=== PATIENT | female | born 1975 | race Caucasian/White ===

== ENCOUNTER 2017-08-18 12:52 | Emergency (ER) | payer OTHER ==
[~2017-08-18] VITALS: Ht 154.9 cm; Wt 88.9 kg
[~2017-08-18 12:52] MED LIST: BUDE1AER; GLU500; LEVA0.6318
--- NOTE | 2017-08-18 13:02 | NUR ---
AMBULATES TO OF2
[2017-08-18 13:03] VITALS: BP 164/81
[2017-08-18] MEDS ORDERED: methylPREDNISolone SS 125 MG in WATER STERILE 2 ML IM ONE (13:20)
[2017-08-18] MEDS ORDERED: ALBUTEROL SULFATE/IPRATROPIU 3 ML SOL IH ONE ×2 (13:20→13:40)
--- NOTE | 2017-08-18 13:27 | NUR ---
ASSUMED PATIENT CARE, CONCUR WITH TRIAGE ASSESSMENT. SEEN AND EVALUATED BY PROVIDER, MSE COMPLETED.
[2017-08-18] MEDS ORDERED: methylPREDNISolone SS 125 MG/2 ML VIAL ONE (13:34)
[2017-08-18 15:00] VITALS: BP 122/60
--- NOTE | 2017-08-18 15:03 | NUR ---
DISPO AND DECISION MAKING DC HOME WITH INSTRUCTIONS AND PRESCRIPTIONS, PATIENT VERBALIZING RELIEF FROM SYMPTOMS. NO DISTRESS.
== END 2017-08-18 15:03 | disposition home or self-care (01) ==
LOC: MED 12:52
DX: J45.901 Unspecified asthma with (acute) exacerbation (principal); E11.9 Type 2 diabetes mellitus without complications; Z79.899 Other long term (current) drug therapy; Z79.84 Long term (current) use of oral hypoglycemic drugs
CPT/HCPCS: 71045; 94640; 96372; 99284; J2930; J7620

== ENCOUNTER 2017-08-22 07:21 | Inpatient (IN) | payer OTHER ==
[~2017-08-22] VITALS: Ht 154.9 cm; Wt 92.5 kg
--- NOTE | 2017-08-22 07:31 | NUR ---
PATIENT PRESENTS TO ED WITH C/O COUGH AND CP WHEN COUGHING . PT STATES HE HAS SLIGHT SOB O2 SAT OF 97 % AT ROOM AIR;DENIES N/V/D; SKIN IS PINK/WARM/DRY; AAOX4 WITH EVEN AND STEADY GAIT; PATIENT STATES PAIN OF 5/10 AT THIS TIME;PATIENT POSITIONED FOR COMFORT;ER WILL BE NOTIFIED;
[2017-08-22 07:32] VITALS: BP 124/94
--- NOTE | 2017-08-22 07:32 | NUR ---
PT AMBULATES TO OF4
[2017-08-22] MEDS ORDERED: cefTRIAXone 1,000 MG in LIDOCAINE 1% ***ER ONLY *** 2.1 ML IM ONE (07:40)
[2017-08-22] MEDS ORDERED: DEXAMETHASONE 10 MG/ML VIAL IM ONE (07:40)
[2017-08-22] MEDS ORDERED: ALBUTEROL SULFATE/IPRATROPIU 3 ML SOL IH ONE (07:40)
[2017-08-22] MEDS ORDERED: ALBUTEROL 0.083% 2.5 MG/3 ML NEBU INH ONE ×2 (07:40)
--- NOTE | 2017-08-22 07:40 | NUR ---
Dr. Owens evaluating patient in OF.
[2017-08-22] MEDS ORDERED: cefTRIAXone 1,000 MG VIAL ONE (07:59)
--- NOTE | 2017-08-22 08:00 | NUR ---
RT AT BEDSIDE.
--- NOTE | 2017-08-22 08:02 | NUR ---
CALLED PHARMACY SPOKE TO ARABELLA LNUA;THEY WILL MIX THE ROCEPHIN AND SEND IT TO [facility] WE HAVE SHORTAGE OF 1% LIDOCAINE.
--- NOTE | 2017-08-22 08:07 | NUR ---
SPOKE TO [facility];NEED TO CHANGE THE TIME FOR THE ORDER OF TAMIFLU;CAN'T CAN'T GET THE MEDICINE IN THE [facility]; SAYS HE WILL CHANGE IT;
[2017-08-22] MEDS ORDERED: LIDOCAINE 2% 1000 MG/50 ML VIAL INJ ONE (08:10)
[2017-08-22] MEDS ORDERED: AZITHROMYCIN 500 MG in DEXTROSE 5% 250 ML IV ONE (08:45)
--- NOTE | 2017-08-22 08:48 | NUR ---
INFLUENZA A POSITIVE,INFLUENZA B NEGATIVE. ERMD MADE AWARE
[2017-08-22] MEDS ORDERED: FAMOTIDINE 20 MG/2 ML VIAL IVP ONE (08:55)
[2017-08-22] MEDS ORDERED: methylPREDNISolone SS 125 MG in WATER STERILE 2 ML IM ONE (08:55)
[2017-08-22] MEDS ORDERED: NACL 0.9% 1,000 ML IV ONE (08:55)
[2017-08-22] MEDS ORDERED: OSELTAMIVIR PHOSPHATE 75 MG CAP PO SCH (09:00)
--- NOTE | 2017-08-22 09:00 | NUR ---
PATIENT TAKEN TO BED#3 FROM OF
--- NOTE | 2017-08-22 09:26 | NUR ---
CALLED PHARMACY FOR THE TAMIFLU;PHARMACIST SAID "WE DON'T HAVE A TAMIFLU BUT WE ORDER SOME"IT WILL BE HERE 1 TO 2 HOURS"
[2017-08-22] MEDS ORDERED: AZITHROMYCIN 500 MG INJ VIAL IV ONE (09:32)
[2017-08-22 10:07] LABS: BILIRUBIN,URINE NEGATIVE (NEGATIVE); COLOR,URINE YELLOW (YELLOW); LEUKOCYTE ESTERASE ,URINE NEGATIVE (NEGATIVE); NITRITE, URINE NEGATIVE (NEGATIVE); PH,URINE 5.5 (5.0-9.0); UGLUCOSE 3+ (NEGATIVE)
[2017-08-22 10:14] LABS: HEMATOCRIT 35.3 % (36-48); HEMOGLOBIN 11.6 g/dL (12.0-16.0); MEAN CORPUSCULAR HEMOGLOBIN 29 pg (27-31); MEAN CORPUSCULAR HGB CONC 33 g/dL (33-37); MEAN CORPUSCULAR VOLUME 87 fL (80-94); PLATELET COUNT (AUTO) 295 K/uL (140-450); RED BLOOD CELL COUNT(AUTO) 4.03 MIL/uL (4.20-5.40); RED CELL DISTRIBUTION WIDTH 11.8 % (11.6-13.7); WHITE BLOOD COUNT (AUTO) 13.5 K/uL (4.8-10.8)
[2017-08-22 10:28] LABS: ANION GAP 15.9 (8-16); CARBON DIOXIDE 23.1 mmol/L (21-32); CREATININE 1.9 mg/dL (0.6-1.3); TOTAL BILIRUBIN 0.2 mg/dL (0.0-1.0)
[2017-08-22 10:32] LABS: APPEARANCE,URINE SLIGHTLY HAZY (CLEAR)
[2017-08-22 10:34] LABS: BLOOD, URINE 1+ (NEGATIVE)
[2017-08-22 10:35] LABS: RBC,URINE 0-5 (RARE) /HPF (0-5); YEAST,URINE Few /HPF (None Seen)
[2017-08-22 10:42] LABS: BASOPHILS % (MANUAL) 1 % (0-2); LYMPHOCYTES % (MANUAL) 18 % (20-46); MONOCYTES % (MANUAL) 8 % (5-12)
[2017-08-22] MEDS ORDERED: DEXTROSE 50% 50 ML SYR IVP PRN ×2 (12:50→13:00)
[2017-08-22] MEDS ORDERED: BLOOD GLUCOSE MONITORING 1 DEV DEV FS SCH (12:50)
[2017-08-22] MEDS ORDERED: INSULIN HUMAN REGULAR 100 UNITS in NACL 0.9% 100 ML IV SCH ×2 (12:50→13:00)
[2017-08-22] MEDS ORDERED: POTASSIUM CHL 20 MEQ/NACL 0.9% 1,000 ML IV ONE (12:50)
[2017-08-22] MEDS: BLOOD GLUCOSE MONITORING 1 DEV DEV FS SCH ×10 (14:00→23:08)
--- NOTE | 2017-08-22 14:00 | NUR ---
RECEIVED PATIENT FROM ED RN PER FLORIN. PATIENT IS AWAKE, ALERT ORIENTED X 4. ABLE TO MAKE HER NEEDS KNOWN. LEFT AC PERIPHERAL IV PATENT AND INTACT. SKIN WARM TO TOUCH WNL, TOENAILS WNL, WITH HAIR GROWTH, NO EDEMA AND +2 BILATERAL PEDAL PULSES. URINE AND BOWEL CONTINENT. CALL LIGHT WITHIN REACH. BED AT LOWEST POSSIBLE POSITION. WILL CONTINUE TO MONITOR PATIENT.
--- NOTE | 2017-08-22 14:04 | NUR ---
Pt report given to JACOBO IN ICU. Transfer of care at this time.
[2017-08-22 14:18] VITALS: BP 155/92
[2017-08-22 14:42] LABS: FREE T4 (FREE THYROXINE) 1.13 ng/dL (0.76-1.46); THYROID STIMULATING HORMONE 1.59 uIU/mL (0.34-3.74)
[2017-08-22] MEDS ORDERED: POTASSIUM CHLORIDE 40 MEQ, LIDOCAINE 1% 25 MG in NACL 0.9% 250 ML IV SCH (15:30)
[2017-08-22] MEDS ORDERED: INSULIN HUMAN REGULAR 100 UNITS/ML 10 ML VIAL SUBQ SCH (15:30)
--- NOTE | 2017-08-22 15:42 | NUR ---
2 RTS UNABLE TO OBTAIN ABG AT THIS TIME
[2017-08-22 16:07] VITALS: BP 157/78
--- NOTE | 2017-08-22 16:30 | NUR ---
RESIDENT PHYSICIAN DR SUAZO MADE AWARE OF BLOOD SUGAR 724.
[2017-08-22] MEDS ORDERED: NACL 0.9% 2,500 ML IV ONE (16:50)
[2017-08-22 16:54] LABS: MAGNESIUM 1.8 mg/dL (1.8-2.4)
[2017-08-22 17:00] LABS: POTASSIUM 4.6 mmol/L (3.5-5.1)
[2017-08-22 17:01] LABS: ANION GAP 19.4 (8-16); CARBON DIOXIDE 19.2 mmol/L (21-32)
--- NOTE | 2017-08-22 17:30 | NUR ---
LATEST BLOOD SUGAR 492. DR. DOOLEY MADE AWARE.
[2017-08-22 18:00] VITALS: BP 141/78
[2017-08-22] MEDS: INSULIN HUMAN REGULAR 100 UNITS in NACL 0.9% 100 ML IV SCH (18:41)
--- NOTE | 2017-08-22 19:15 | NUR ---
REPORT GIVEN TO [facility] RN FOR CONTINUITY OF CARE.
--- NOTE | 2017-08-22 19:15 | NUR ---
LATEST BS 398. DR. SUAZO MADE AWARE.
--- NOTE | 2017-08-22 19:25 | NUR ---
RECEIVED REPORT FROM CHRISTIANE CENTENO FOR CONTINUITY OF CARE. PT AWAKE, ALERT AND ORIENTED. ABLE TO MAKE NEEDS KNOWN. AFEBRILE. PERRLA. NO SOB NOTED. VS STABLE AT THIS TIME. DENIES CHEST PAIN. NO SIGNS OF DISTRESS NOTED. PULSES PALPABLE. S1+S2 HEARD. NOTED PT WITH WHEEZING. BOWEL SOUNDS ACTIVE. PT CONTINENT OF BOTH BLADDER AND BOWEL. PERIPHERAL IV LEFT AC, LEFT HAND, AND RIGHT FA. ALL PERIPHERAL IV PATENT AND ASYMPTOMATIC. PT ON INSULIN DRIP. BED AT LOW POSSIBLE POSITION. CALL LIGHT WITHIN REACH. WILL CONTINUE TO MONITOR PT.
[2017-08-22] MEDS ORDERED: ALBUTEROL 0.083% 2.5 MG/3 ML NEBU INH PRN (19:55)
[2017-08-22] MEDS ORDERED: IPRATROPIUM 0.02% 0.5 MG/2.5 ML NEBU INH PRN (19:55)
[2017-08-22 20:00] VITALS: BP 147/86
[2017-08-22] MEDS ORDERED: methylPREDNISolone SS 125 MG/2 ML VIAL IVP SCH (20:10)
[2017-08-22] MEDS: CHLORHEXADINE GLUC 2% CLOTH TP SCH (20:17)
[2017-08-22] MEDS ORDERED: MONTELUKAST SODIUM 10 MG TAB PO SCH ×2 (20:25→21:35)
[2017-08-22] MEDS ORDERED: FLUTICASONE NASAL 50 MCG/ACTUATION 16 GM BTL NS SCH ×2 (20:25→21:35)
[2017-08-22] MEDS ORDERED: ACETYLCYSTEINE 10% (100 MG/ML) 100 MG/ML VIAL INH PRN ×2 (20:30→21:55)
[2017-08-22] MEDS ORDERED: KETOROLAC 30 MG/ML VIAL IVP PRN (20:50)
[2017-08-22] MEDS ORDERED: HYDROcodone/APAP 5/325 MG 1 TAB TAB PO PRN (20:50)
[2017-08-22] MEDS ORDERED: metFORMIN 500 MG TAB PO SCH (21:00)
[2017-08-22] MEDS ORDERED: guaiFENesin 600 MG TABER PO SCH ×2 (21:00→21:35)
--- NOTE | 2017-08-22 21:40 | NUR ---
SCHEDULED MEDICATION ADMINISTERED. PT TOLERATED WELL. VS STABLE. NO CHANGE IN CONDITION. WILL CONTINUE TO MONITOR PT.
[2017-08-22 22:00] VITALS: BP 146/70
[2017-08-22 22:01] LABS: ANION GAP 17.2 (8-16); CARBON DIOXIDE 19.5 mmol/L (21-32); CREATININE 1.6 mg/dL (0.6-1.3); POTASSIUM 3.7 mmol/L (3.5-5.1)
[2017-08-22] MEDS ORDERED: POTASSIUM CHLORIDE 10 MEQ in NACL 0.9% 1,000 ML IV SCH (22:15)
[2017-08-22 22:19] LABS: MAGNESIUM 1.8 mg/dL (1.8-2.4); PHOSPHORUS 1.7 mg/dL (2.5-4.9)
--- NOTE | 2017-08-22 22:45 | NUR ---
INFORMED DR DOOLEY THAT FLONASE AND MUCINEX NOT GIVEN D/T MEDICATIONS ARE NOT AVAILABLE.
--- NOTE | 2017-08-22 23:10 | NUR ---
CALLED DR DOOLEY TO REPORT THAT PT LATEST BG IS 183. RECEIVED NEW ORDERS. WILL CONTINUE TO MONITOR PT.
[2017-08-22] MEDS ORDERED: DEXT 5% / NACL 0.45% 1,000 ML IV SCH (23:15)
[2017-08-22] MEDS: ALBUTEROL 0.083% 2.5 MG/3 ML NEBU INH SCH (23:32)
[2017-08-23] VITALS (9 sets, daily range): BP systolic 134–193; BP diastolic 66–89
[2017-08-23] MEDS: BLOOD GLUCOSE MONITORING 1 DEV DEV FS SCH ×11 (00:34→21:19)
[2017-08-23] MEDS ORDERED: NACL 0.9% 1,000 ML IV SCH (01:15)
--- NOTE | 2017-08-23 01:18 | NUR ---
LATEST BG 252. INFORMED DR DOOLEY AND RECEIVED NEW ORDERS. WILL CONTINUE TO MONITOR PT. VS STABLE AT THIS TIME. NO SIGNS OF DISTRESS NOTED.
[2017-08-23] MEDS: INSULIN HUMAN REGULAR 100 UNITS in NACL 0.9% 100 ML IV SCH (02:15)
[2017-08-23] MEDS: ALBUTEROL 0.083% 2.5 MG/3 ML NEBU INH SCH ×6 (02:37→23:08)
[2017-08-23 02:51] LABS: ANION GAP 13.6 (8-16); CARBON DIOXIDE 20.2 mmol/L (21-32); CREATININE 1.3 mg/dL (0.6-1.3); POTASSIUM 3.8 mmol/L (3.5-5.1)
[2017-08-23 02:57] LABS: MAGNESIUM 1.9 mg/dL (1.8-2.4); PHOSPHORUS 1.8 mg/dL (2.5-4.9)
--- NOTE | 2017-08-23 03:11 | NUR ---
CHECKED BG AND WAS 179. INFORMED DR DOOLEY, ACCORDING TO HIM FOLLOW PROTOCOL AND HAVE PT ON D5 1/2NS AND HAVE INSULIN DRIP AT 0.05UNITS/KG/HR.
--- NOTE | 2017-08-23 05:08 | NUR ---
DR DOOLEY CAME IN TO CHECK ON PT. INFORMED THAT BG 248. TITRATED D5 1/2NS TO 200ML/HR. DR DOOLEY AWARE AND OKAY TO TITRATE. WILL CONTINUE TO MONITOR PT.
[2017-08-23] MEDS: DEXT 5% / NACL 0.45% 1,000 ML IV SCH ×2 (05:19→14:03)
[2017-08-23 05:40] LABS: HEMATOCRIT 30.8 % (36-48); HEMOGLOBIN 10.1 g/dL (12.0-16.0); MEAN CORPUSCULAR HEMOGLOBIN 29 pg (27-31); MEAN CORPUSCULAR HGB CONC 33 g/dL (33-37); MEAN CORPUSCULAR VOLUME 88 fL (80-94); PLATELET COUNT (AUTO) 257 K/uL (140-450); RED BLOOD CELL COUNT(AUTO) 3.52 MIL/uL (4.20-5.40); RED CELL DISTRIBUTION WIDTH 12.4 % (11.6-13.7); WHITE BLOOD COUNT (AUTO) 12.5 K/uL (4.8-10.8)
[2017-08-23 05:59] LABS: ANION GAP 14.2 (8-16); CARBON DIOXIDE 20.3 mmol/L (21-32); CREATININE 1.2 mg/dL (0.6-1.3); POTASSIUM 3.5 mmol/L (3.5-5.1)
--- NOTE | 2017-08-23 06:00 | NUR ---
VBG OBTAINED BY LAB AT THIS TIME, VBG SAMPLE WAS NOT ABLE TO BE ANALYZED AFTER MULTIPLE ATTEMPTS THROUGH THE MACHINE, DR DOOLEY IS AWARE, NEXT VBG WILL BE REPORTED.
[2017-08-23 06:03] LABS: MAGNESIUM 1.9 mg/dL (1.8-2.4)
--- NOTE | 2017-08-23 06:13 | NUR ---
BG CHECKED AND WAS 252. INFORMED DR DOOLEY AND RECEIVED NEW ORDERS.
[2017-08-23 06:38] LABS: BASOPHILS % (MANUAL) 0 % (0-2); EOSINOPHILS % (MANUAL) 0 % (0-4); LYMPHOCYTES % (MANUAL) 15 % (20-46); MONOCYTES % (MANUAL) 1 % (5-12)
[2017-08-23] MEDS: BUDESONIDE 0.25 MG/2 ML NEBU INH SCH ×2 (06:40→19:21)
--- NOTE | 2017-08-23 07:05 | NUR ---
REPORT GIVEN TO CHRISTIANE CENTENO FOR CONTINUITY OF CARE. VS STABLE AT THIS TIME.
--- NOTE | 2017-08-23 07:05 | NUR ---
ASSUMED CONTINUITY OF CARE FROM NOC RN. PATIENT IS AWAKE, ALERT, ORIENTED X4. ABLE TO MAKE HER NEEDS KNOWN. LEFT AC G 20 TO INSULIN DRIP AT 9.25 U/H. RIGHT HAND G 20 RUNNING TO D5 1/2 NS AT 150 CC/H. URINE AND BOWEL CONTINENT, ABLE TO MAKE HER NEEDS KNOWN. CALL LIGHT WITH IN REACH. BED AT LOWEST POSSIBLE POSITION. WILL CONTINUE TO MONITOR PATIENT.
[2017-08-23] MEDS: FLUTICASONE NASAL 50 MCG/ACTUATION 16 GM BTL NS SCH (09:00)
[2017-08-23] MEDS: methylPREDNISolone SS 125 MG/2 ML VIAL IVP SCH ×3 (09:00→17:31)
[2017-08-23] MEDS: MONTELUKAST SODIUM 10 MG TAB PO SCH (09:03)
[2017-08-23] MEDS: LORATADINE 10 MG TAB PO SCH (09:03)
[2017-08-23] MEDS: LACTOBACILLUS RHAMNOSUS GG 1 EACH CAP PO SCH ×2 (09:03→17:31)
[2017-08-23] MEDS: guaiFENesin 600 MG TABER PO SCH ×2 (09:08→21:02)
[2017-08-23] MEDS: INSULIN DETEMIR 100 UNITS/ML 10 ML VIAL SUBQ SCH (10:59)
--- NOTE | 2017-08-23 11:05 | NUR ---
PT REFUSED TX TOLD DR. FISHER THAT SHE WANTS TO GO HOME NO SIGNS OF DISTRESS NOTED AT THIS TIME CHRISTIANE CENTENO NOTIFIED
[2017-08-23] MEDS ORDERED: LORazepam 0.5 MG TAB PO PRN (11:25)
[2017-08-23] MEDS ORDERED: PROBIOTIC SCREEN 1 EA MISC MC PRN (11:35)
[2017-08-23] MEDS ORDERED: BLOOD GLUCOSE MONITORING 1 DEV DEV FS SCH (12:00)
[2017-08-23] MEDS: AZITHROMYCIN 250 MG TAB PO SCH (12:07)
[2017-08-23] MEDS: MUPIROCIN 2% OINT 22 GM TUBE TP SCH (12:08)
[2017-08-23] MEDS ORDERED: DEXTROSE 50% 50 ML SYR IVP PRN (14:05)
[2017-08-23] MEDS: INSULIN LISPRO SLIDING SCALE 100 UNITS/ML VIAL SUBQ PRN ×2 (16:33→21:21)
--- NOTE | 2017-08-23 19:20 | NUR ---
REPORT GIVEN TO NIGHT RN FOR CONTINUITY OF CARE. PATIENT IN STABLE CONDITION.
--- NOTE | 2017-08-23 19:30 | NUR ---
RECEIVED PATIENT ON BED, AWAKE ALERT AND ORIENTED ABLE TO MOVE LIMBS FREELY. BREATHING EVEN AND UNLABORED; ON ROOM AIR. CARDIACSCOPE SHOWS ON SINUS RHYTHM, HR 89/MIN NO ARRHYTHMIAS SEEN. ABDOMEN IS SOFT; ACTIVE BOWEL SOUNDS.
[2017-08-23] MEDS: CHLORHEXADINE GLUC 2% CLOTH TP SCH (20:00)
[2017-08-23] MEDS ORDERED: INSULIN DETEMIR 100 UNITS/ML 10 ML VIAL SUBQ SCH (21:00)
--- NOTE | 2017-08-23 21:00 | NUR ---
ACCUCHECK 431; REFERRED TO DR. DOOLEY BY TELEPHONE; GOT NEW ORDER TO CHANGE IVF TO NORMAL SALINE; CARRIED OUT.
[2017-08-23] MEDS: NACL 0.9% 1,000 ML IV SCH (21:29)
[2017-08-23 22:52] LABS: ANION GAP 15.9 (8-16); CREATININE 1.5 mg/dL (0.6-1.3); POTASSIUM 3.9 mmol/L (3.5-5.1)
[2017-08-24] VITALS: BP 148/81
[2017-08-24] MEDS: methylPREDNISolone SS 125 MG/2 ML VIAL IVP SCH (00:12)
--- NOTE | 2017-08-24 00:30 | NUR ---
SLEEPING QUIETLY; V/S STABLE AND WITHIN NORMAL LIMITS,
[2017-08-24] MEDS: ALBUTEROL 0.083% 2.5 MG/3 ML NEBU INH SCH ×4 (03:00→14:58)
--- NOTE | 2017-08-24 03:00 | NUR ---
UP AND ABOUT TO TOILET FOR HER MORNING WASH. PATIENT COMPLAINED THAT SHE BEDWET A LOT EVERYTIME SHE COUGHS.
--- NOTE | 2017-08-24 03:31 | NUR ---
PATIENT WAS INFORMED AND AWARE THAT SHE'LL BE TRANSFERRED TO TELEMETRY DEPT. BEFORE THE END OF MY SHIFT.
[2017-08-24 04:00] VITALS: BP 140/78
--- NOTE | 2017-08-24 05:00 | NUR ---
V/S STABLE; NO OTHER UNUSUAL COMPLAINTS IN THE NIGHT.
--- NOTE | 2017-08-24 05:35 | NUR ---
TRANSFERRED TO TELE 114 PER BED; ENDORSED TO DOOR TECHNICIANCHRISTIANE ABARCA FOR CONTINUITY OF CARE.
--- NOTE | 2017-08-24 05:37 | NUR ---
RECEIVED PATIENT FROM ICU. PATIENT A&OX4. PATIENT DENIES PAIN. IV SITE PATENT AND INTACT. PATIENT IS AMBULATORY. PATIENT DENIES DIZZINESS, SOB, CHEST PAIN. NO SIGNS OR SYMPTOMS OF ACUTE DISTRESS NOTED. CALL LIGHT WITHIN REACH. PATIENT ORIENTED TO UNIT. SAFETY MEASURES ENSURED. WILL CONTINUE TO MONITOR.
[2017-08-24] MEDS: BLOOD GLUCOSE MONITORING 1 DEV DEV FS SCH ×2 (06:36→11:29)
--- NOTE | 2017-08-24 07:25 | NUR ---
ENDORSED PLAN OF CARE TO AM RN. PATIENT IN STABLE CONDITION.
--- NOTE | 2017-08-24 07:26 | NUR ---
RECEIVED REPORT FROM TAR KETTLE RUNNER RN. PATIENT IS AAOX4, RESPIRATORY EFFORT EVEN AND UNLABORED. PATIENT IS ON DROPLET PRECAUTION. NO SIGNS AND SYMPTOMS OF ACUTE DISTRESS NOTED AT THIS TIME. HAS IV TO LEFT AC 20G, INFUSING NORMAL SALINE AT 70 ML/HR. SITE IS CLEAN, DRY, PATENT AND INTACT. BED IS IN LOWEST POSITION, SIDE RAILS UP X2, CALL LIGHT PLACED WITHIN REACH. DISCUSSED PLAN OF CARE WITH PATIENT, SHE VERBALIZED UNDERSTANDING. WILL CONTINUE TO MONITOR.
[2017-08-24 08:00] VITALS: BP 134/76
[2017-08-24] MEDS ORDERED: metFORMIN 500 MG TAB PO SCH (08:00)
[2017-08-24] MEDS: BUDESONIDE 0.25 MG/2 ML NEBU INH SCH (08:09)
[2017-08-24 08:37] LABS: HEMATOCRIT 33.3 % (36-48); HEMOGLOBIN 11.2 g/dL (12.0-16.0); MEAN CORPUSCULAR HEMOGLOBIN 30 pg (27-31); MEAN CORPUSCULAR HGB CONC 34 g/dL (33-37); MEAN CORPUSCULAR VOLUME 88 fL (80-94); PLATELET COUNT (AUTO) 302 K/uL (140-450); RED BLOOD CELL COUNT(AUTO) 3.78 MIL/uL (4.20-5.40); RED CELL DISTRIBUTION WIDTH 12.7 % (11.6-13.7); WHITE BLOOD COUNT (AUTO) 17.1 K/uL (4.8-10.8)
[2017-08-24] MEDS: NACL 0.9% 1,000 ML IV SCH (08:46)
--- NOTE | 2017-08-24 08:49 | NUR ---
PATIENT HAS BEEN SCREENED AND CATEGORIZED HIGH NUTRITION RISK. PATIENT WILL BE SEEN IN 1-2 DAYS. 08/23/17-08/24/[address]
[2017-08-24] MEDS: guaiFENesin 600 MG TABER PO SCH (08:52)
[2017-08-24] MEDS: AZITHROMYCIN 250 MG TAB PO SCH (08:52)
[2017-08-24] MEDS: MONTELUKAST SODIUM 10 MG TAB PO SCH (08:52)
[2017-08-24] MEDS: LORATADINE 10 MG TAB PO SCH (08:52)
[2017-08-24] MEDS: LACTOBACILLUS RHAMNOSUS GG 1 EACH CAP PO SCH (08:52)
[2017-08-24] MEDS: FLUTICASONE NASAL 50 MCG/ACTUATION 16 GM BTL NS SCH (08:53)
[2017-08-24 08:54] LABS: ANION GAP 16.8 (8-16); CARBON DIOXIDE 19.9 mmol/L (21-32); CREATININE 1.5 mg/dL (0.6-1.3); POTASSIUM 3.7 mmol/L (3.5-5.1)
[2017-08-24] MEDS: MUPIROCIN 2% OINT 22 GM TUBE TP SCH (08:54)
[2017-08-24 08:57] LABS: MAGNESIUM 2.1 mg/dL (1.8-2.4)
[2017-08-24] MEDS ORDERED: methylPREDNISolone SS 40 MG/ML VIAL IVP SCH ×2 (09:00)
[2017-08-24] MEDS: INSULIN DETEMIR 100 UNITS/ML 10 ML VIAL SUBQ SCH (09:06)
[2017-08-24 09:31] LABS: MONOCYTES % (MANUAL) 4 % (5-12)
[2017-08-24 09:32] LABS: LYMPHOCYTES % (MANUAL) 15 % (20-46)
[2017-08-24] MEDS ORDERED: FLUCONAZOLE 100 MG TAB PO SCH (11:05)
[2017-08-24] MEDS: INSULIN LISPRO SLIDING SCALE 100 UNITS/ML VIAL SUBQ PRN (11:36)
--- NOTE | 2017-08-24 11:46 | NUR ---
BIN NOTE PER DRYLAND FARMER ROSA, SEND REVIEWS TO BOTH [facility] AND [facility] INITIAL REVIEW FAXED TO [facility] [phone] PH# [phone] AND TO [facility] [phone] PH# [phone] Addendum: 08/24/17 at 1442 by Liudmila Duarte RECEIVED CALL FROM [facility] BIN LOWE # [phone] REQUESTING TO SEND REVIEWS TO FAX# [phone]. FAXED INITIAL REVIEW TO [facility] [phone] ATTN: BIN LOWE.
[2017-08-24 12:00] VITALS: BP 149/82
--- NOTE | 2017-08-24 16:10 | NUR ---
PATIENT DECIDED TO LEAVE AMA. WAS IN THE ROOM WHEN DR NORBERT WINTERS HAD HER SIGN THE AMA FORM. DR WINTERS EXPLAINED TO THE PATIENT THE RISKS INVOLVED IN LEAVING AMA AND THE PATIENT VERBALIZED UNDERSTANDING. A PRESCRIPTION FOR NEW MEDICATIONS WAS GIVEN TO THE PATIENT AND INFORMED THAT SHE NEEDS TO SEE HER PCP TO GET REFILLS ON OTHER MEDICATION. IV FLUID WAS STOPPED. IV REMOVED FROM THE SITE. CATHETER INTACT. SITE IS CLEAN, DRY, PATENT. ID BANDS REMOVED. PATIENT IN STABLE CONDITION.
--- NOTE | 2017-08-24 16:13 | NUR ---
08/24/2017 RD INITIAL ASSESSMENT COMPLETED PLEASE REFER TO NUTRITION ASSESSMENT UNDER CARE ACTIVITY FOR ESTIMATED NUTRITIONAL NEEDS. 1.CONTINUE 60 GM CCHO DIET FOR GLUCOSE CONTROL 2.BLOOD GLUCOSE TO BE WNL (74-106 MG/DL) WITHIN 2-3 DAYS. 3.PT TO CONTINUE CONSUMING >75% ESTIMATED KCAL AND PRO NEEDS/DAY. PT CONSUMING APPROX 1430 KCALS AND 85 GM PRO/DAY, THIS IS MEETING GREATER THAN 100% OF ESTIMATED KCALS AND PRO NEEDS/DAYADEQUATE 4.RD TO FOLLOW-UP IN 2-3DAYS PATIENT IS HIGH RISK. KIKA ROMANO, HILDA
--- NOTE | 2017-08-24 16:25 | NUR ---
08/24/2017 RD INITIAL ASSESSMENT COMPLETED PLEASE REFER TO NUTRITION ASSESSMENT UNDER CARE ACTIVITY FOR ESTIMATED NUTRITIONAL NEEDS. 1.PT ENERGY INTKAE TO INCREASE TO >75% ESTIMATED NEEDS/DAY WITHIN 2-3 DAYS. 2.NUTRITION RELATED LABORATORY VALUES TO IMPROVE TO NORMAL LIMITS WITHIN 2-3 DAYS. 3.RD TO FOLLOW-UP IN 3-5 DAYS PATIENT IS MODERATE RISK. KIKA ROMANO, RD
[2017-08-25 06:27] LABS: T4 (THYROXINE) 7.4 ug/dL (4.5-12.0)
== END 2017-08-24 16:10 | disposition left against medical advice (07) | DRG 133 ==
LOC: MED 07:21 → MIC 13:16 → MTU 08-24 05:35
PROVIDERS: ADMIT Family Medicine; ATTEND Family Medicine
DX: J96.00 Acute respiratory failure, unspecified whether with hypoxia or hypercapnia (principal); N17.0 Acute kidney failure with tubular necrosis; E11.10 Type 2 diabetes mellitus with ketoacidosis without coma; E44.0 Moderate protein-calorie malnutrition; D68.59 Other primary thrombophilia; E11.65 Type 2 diabetes mellitus with hyperglycemia; J44.1 Chronic obstructive pulmonary disease with (acute) exacerbation; E87.1 Hypo-osmolality and hyponatremia; J45.901 Unspecified asthma with (acute) exacerbation; E66.01 Morbid (severe) obesity due to excess calories; J10.1 Influenza due to other identified influenza virus with other respiratory manifestations; I10 Essential (primary) hypertension; E87.6 Hypokalemia; Z68.36 Body mass index [BMI] 36.0-36.9, adult; Z53.21 Procedure and treatment not carried out due to patient leaving prior to being seen by health care provider; Z98.51 Tubal ligation status; Z71.3 Dietary counseling and surveillance
CPT/HCPCS: 36415; 36600; 71046; 80048; 80053; 81001; 82009; 82803; 82948; 83036; 83735; 84100; 84436; 84439; 84443; 84479; 84484; 85025; 87040; 87081; 87086; 87804; 93005; 93925; 93970; 94640; 96361; 96365; 96372; 96375; 99291; J0456; J0696; J1100; J1815; J2001; J2920; J2930; J3480; J3490; J7030; J7060; J7613; J7626; J7644; Q0092

== ENCOUNTER 2017-09-20 23:47 | Inpatient (IN) | payer OTHER ==
[~2017-09-20] VITALS: Ht 154.9 cm; Wt 83.0 kg
[~2017-09-20 23:47] MED LIST changes: -GLU500; +GLU500 PO
[2017-09-20 23:51] VITALS: BP 155/82
--- NOTE | 2017-09-21 00:03 | NUR ---
TO ER BED 10
--- NOTE | 2017-09-21 00:10 | NUR ---
Pt came to ED c/o productive cough x5 days. Pt states cough is progressively getting worse. Pt A&Ox4. Pt denies Dyspnia or pain at this time. VSS. Pt in bed in poc with HOB elevated. ER MD aware. continue to to monitor.
[2017-09-21] MEDS ORDERED: ALBUTEROL SULFATE/IPRATROPIU 3 ML SOL IH ONE ×2 (00:35→02:40)
[2017-09-21] MEDS ORDERED: NACL 0.9% 1,000 ML IV ONE (01:20)
[2017-09-21] MEDS ORDERED: MAG SULF 2000 MG/WATER PREMIX 50 ML IV ONE (01:20)
[2017-09-21] MEDS ORDERED: AZITHROMYCIN 250 MG TAB PO ONE (02:15)
[2017-09-21] MEDS ORDERED: IBUPROFEN 800 MG TAB PO ONE (02:15)
[2017-09-21] MEDS ORDERED: cefTRIAXone 250 MG in LIDOCAINE MPF 1% - **ER/OR** 0.9 ML IM ONE (02:15)
[2017-09-21] MEDS ORDERED: GLIP5TAB4 PO (02:34)
[2017-09-21] MEDS ORDERED: methylPREDNISolone SS 125 MG/2 ML VIAL IVP ONE (02:40)
[2017-09-21 02:45] LABS: BASOPHILS # (AUTO) 0.1 K/uL (0.00-0.22); EOSINOPHILS # (AUTO) 0.1 K/uL (0-0.4); EOSINOPHILS % (AUTO) 0.6 % (0.0-4.0); HEMOGLOBIN 10.2 g/dL (12.0-16.0); LYMPHOCYTES # (AUTO) 3.1 K/uL (2.5-16.5); LYMPHOCYTES % (AUTO) 22.2 % (20.5-51.1); MEAN CORPUSCULAR HEMOGLOBIN 29 pg (27-31); MEAN CORPUSCULAR HGB CONC 33 g/dL (33-37); MEAN CORPUSCULAR VOLUME 88 fL (80-94); MONOCYTES % (AUTO) 7.6 % (1.7-9.3); NEUTROPHILS # (AUTO) 9.5 K/uL (1.8-7.7); NEUTROPHILS % (AUTO) 68.6 % (42.2-75.2); PLATELET COUNT (AUTO) 335 K/uL (140-450); RED BLOOD CELL COUNT(AUTO) 3.54 MIL/uL (4.20-5.40); RED CELL DISTRIBUTION WIDTH 13.1 % (11.6-13.7); WHITE BLOOD COUNT (AUTO) 13.8 K/uL (4.8-10.8)
[2017-09-21 02:55] LABS: ANION GAP 13.8 (8-16); CARBON DIOXIDE 24.8 mmol/L (21-32); CREATININE 1.6 mg/dL (0.6-1.3); POTASSIUM 3.6 mmol/L (3.5-5.1)
[2017-09-21 03:01] LABS: ALBUMIN 2.4 g/dL (3.4-5.0); TOTAL BILIRUBIN 0.2 mg/dL (0.0-1.0)
[2017-09-21] MEDS ORDERED: ONDANSETRON 4 MG/2 ML VIAL IVP PRN (03:10)
[2017-09-21] MEDS ORDERED: ALBUTEROL SULFATE/IPRATROPIU 3 ML SOL IH PRN ×2 (03:10→13:15)
[2017-09-21] MEDS ORDERED: ACETAMINOPHEN 325 MG TAB PO PRN (03:10)
[2017-09-21] MEDS ORDERED: HYDROcodone/APAP 7.5/325 MG 1 TAB PO PRN (03:10)
[2017-09-21 04:00] VITALS: BP 121/84
--- NOTE | 2017-09-21 04:00 | NUR ---
PT ARRIVED AT UNIT VIA GURNEY, PT AMBULATED TO BED, NO DISTRESS NOTED, STABLE, REPORT RECEIVED FROM ER NURSE MIREYA RN, PT ON ROOM AIR NO SOB, REPORTED HAVING PAIN ON THE CHEST AREA OF 1/10 TOLERABLE. IV TO R AC 20 G RUNNING NS BOLUS, PT STATED IV HURTS, WILL PUT NEW IV. INITIAL ASSESSMENT DONE, ALL SAFETY PRECAUTION MET, WILL CONTINUE TO MONITOR.
--- NOTE | 2017-09-21 04:03 | NUR ---
Report given to Valery GRANDE and care transfered.
--- NOTE | 2017-09-21 04:11 | NUR ---
Pt escorted to room 106 B via gurney.
[2017-09-21 04:17] LABS: CHOL/HDL RATIO 5.5 (1-4.5); FREE T4 (FREE THYROXINE) 1.24 ng/dL (0.76-1.46); MAGNESIUM 2.5 mg/dL (1.8-2.4); PHOSPHORUS 2.6 mg/dL (2.5-4.9); THYROID STIMULATING HORMONE 1.05 uIU/mL (0.34-3.74)
[2017-09-21] MEDS ORDERED: DEXTROSE 50% 50 ML SYR IVP PRN (04:30)
[2017-09-21] MEDS: NACL 0.9% 1,000 ML IV SCH ×2 (04:40→22:04)
--- NOTE | 2017-09-21 04:40 | NUR ---
NEW IV INSERTED 22 G L FA, INTACT, PATENT, RAC 20G IV D/C, CATH INTACT, PT TOLERATED WELL, CALL LIGHT WITHIN REACH, WILL CONTINUE TO MONITOR.
[2017-09-21] MEDS: methylPREDNISolone SS 125 MG/2 ML VIAL IVP SCH ×3 (05:38→21:55)
--- NOTE | 2017-09-21 05:38 | NUR ---
DUE MEDICATION GIVEN, PT TOLERATED WELL, NO DISTRESS NOTED, CALL LIGHT WITHIN REACH, WILL CONTINUE TO MONITOR.
[2017-09-21] MEDS: BLOOD GLUCOSE MONITORING 1 DEV DEV FS SCH ×4 (06:14→21:55)
[2017-09-21] MEDS: INSULIN LISPRO SLIDING SCALE 100 UNITS/ML VIAL SUBQ PRN ×2 (06:15→16:48)
[2017-09-21] MEDS ORDERED: ALBUTEROL SULFATE/IPRATROPIU 3 ML SOL IH SCH ×2 (07:00→12:00)
--- NOTE | 2017-09-21 07:30 | NUR ---
ENDORSED PLAN OF CARE TO DAY SHIFT NURSE SHARMAINE RN, PT STABLE, NO DISTRESS NOTED, CALL LIGHT WITHIN REACH.
--- NOTE | 2017-09-21 07:30 | NUR ---
RECEIVED REPORT FROM STAFF NURSE NURSE. PATIENT IS AAOX4, RESPIRATORY EFFORT EVEN AND UNLABORED. PATIENT HAS PRODUCTIVE COUGH. NO SIGNS AND SYMPTOMS OF ACUTE DISTRESS NOTED AT THIS TIME. PATIENT HAS IV TO THE LEFT FOREARM 22G, INFUSING NORMAL SALINE AT 50ML/HR. SITE IS CLEAN, DRY, PATENT AND INTACT. DISCUSSED PLAN OF CARE WITH PATIENT AND SHE VERBALIZED UNDERSTANDING. BED IN LOWEST POSITION, SIDE RAILS UP X2, CALL LIGHT PLACED WITHIN REACH. WILL CONTINUE TO MONITOR.
[2017-09-21 08:00] VITALS: BP 153/82
[2017-09-21] MEDS ORDERED: LEVOFLOXACIN 750 MG/D5W PREMIX 150 ML IV SCH (08:00)
[2017-09-21] MEDS: AZITHROMYCIN 250 MG TAB PO SCH (08:23)
[2017-09-21] MEDS: LACTOBACILLUS RHAMNOSUS GG 1 EACH CAP PO SCH (08:23)
[2017-09-21] MEDS: DOCUSATE SODIUM 100 MG GELCAP PO SCH ×2 (08:24→21:55)
--- NOTE | 2017-09-21 08:45 | NUR ---
pt is unable to do IS at this time
--- NOTE | 2017-09-21 09:00 | NUR ---
PATIENT HAS BEEN SCREENED AND CATEGORIZED HIGH NUTRITION RISK. PATIENT WILL BE SEEN WITHIN 1-2 DAYS OF ADMISSION. 09/22/18-09/22/[address]
--- NOTE | 2017-09-21 11:41 | NUR ---
PATIENTS BLOOD SUGAR AT 493. MADE DR ALMONTE AND GABRIELE AWARE. WILL FOLLOW THROUGH WITH ORDERS.
[2017-09-21 12:00] VITALS: BP 155/94
[2017-09-21] MEDS ORDERED: ACETYLCYSTEINE 10% (100 MG/ML) 100 MG/ML VIAL INH SCH (12:00)
[2017-09-21] MEDS ORDERED: INSULIN LANTUS 100 UNITS/ML 10 ML VIAL SUBQ SCH (13:00)
--- NOTE | 2017-09-21 13:21 | NUR ---
FAXED INITIAL REVIEW TO [facility] [phone] PHONE [facility] [phone] FAXED INITIAL REVIEW TO [facility] [phone] PHONE [phone]
[2017-09-21 16:00] VITALS: BP 155/91
--- NOTE | 2017-09-21 16:42 | NUR ---
MADE DR ALMONTE AWARE THAT PATIENTS BLOOD SUGAR IS TOO HIGH TO READ ON THE GLUCOMETER. ORDERED TO GIVE 15 UNITS OF HUMALOG AND RECHECK BLOOD SUGAR IN 2 HOURS. WILL FOLLOW THROUGH WITH ORDERS.
[2017-09-21] MEDS ORDERED: metFORMIN 500 MG TAB PO SCH (18:35)
--- NOTE | 2017-09-21 18:35 | NUR ---
MADE DR PATEL AWARE THAT PATIENTS BLOOD SUGAR IS NOW 559. HE ADDED ON A COUPLE OF MEDICATIONS TO BE GIVEN AT 2100. NO COVERAGE ORDERED FOR RIGHT NOW. PATIENT HAS NO SIGNS AND SYMPTOMS OF ACUTE DISTRESS NOTED AT THIS TIME. WILL CONTINUE TO MONITOR.
[2017-09-21] MEDS ORDERED: glipiZIDE 5 MG TAB PO SCH (18:43)
[2017-09-21] MEDS: ALBUTEROL SULFATE/IPRATROPIU 3 ML SOL IH SCH (18:50)
--- NOTE | 2017-09-21 18:50 | NUR ---
PATIENT UNABLE TO PERFORM I/S DUE TO COUGHING SPELLS
[2017-09-21] MEDS: INSULIN LISPRO 100 UNITS/ML VIAL SUBQ SCH ×2 (18:55→21:53)
--- NOTE | 2017-09-21 19:19 | NUR ---
ENDORSED PATIENT TO TECHNICAL INSTRUCTOR COURSE DEVELOPER RN FOR CONTINUITY OF CARE. PATIENT IN STABLE CONDITION.
--- NOTE | 2017-09-21 19:20 | NUR ---
RECEIVED REPORT FROM DAY SHIFT NURSE. AAOX4. NO C/O PAIN OR SOB NOTED. IV TO LEFT FA #22G, NS AT 50 ML/HR. NO DIARRHEA NOTED. DISCUSSED PLAN OF CARE, PT VERBALIZED UNDERSTANDING. CALL LIGHT WITHIN REACH. WILL CONTINUE TO MONITOR.
--- NOTE | 2017-09-21 20:05 | NUR ---
SCD'S NOT APPLIED. PT AMBULATING BY HERSELF.
[2017-09-21] MEDS ORDERED: INSULIN LISPRO 100 UNITS/ML VIAL SUBQ ONE (20:50)
--- NOTE | 2017-09-21 21:00 | NUR ---
BS CHECKED 552. DR. PATEL ORDERED TO GIVE 15 UNITS OF HUMALOG SQ.
--- NOTE | 2017-09-21 21:30 | NUR ---
PT ACCIDENTALLY PULLED OUT IV LINE. TIP INTACT. NO BLEEDING NOTED. INSERTED NEW IV TO LEFT HAND #22G. GOOD FLUSH AND BLOOD RETURN. PT TOLERATED PROCEDURE WELL. PT COUGHING BUT REFUSED COUGH MEDICINE. CALL LIGHT WITHIN REACH.
--- NOTE | 2017-09-21 22:15 | NUR ---
PEAK FLOW METER LEFT AT BEDSIDE, PATIENT STILL HAVING CONTINUOUS COUGH, PATIENT UNABLE TO DO INCENTIVE SPIROMETER. RECOMMENDED TO CHRISTIANE PRIETO THAT PATIENT MAY NEED COUGH MEDICATION,
--- NOTE | 2017-09-21 22:20 | NUR ---
PT COUGHING. OFFERED COUGH MEDS. PT STATED OKAY BUT SHE WANTED A COUGH PILL NOT COUGH SYRUP. DR. PATEL MADE AWARE. WAITING FOR MD'S ORDER.
[2017-09-21] MEDS ORDERED: BENZOCAINE/MENTHOL 1 LOZ MM PRN (23:05)
[2017-09-22] VITALS: BP 136/80
[2017-09-22] MEDS ORDERED: guaiFENesin 600 MG TABER PO SCH ×2 (00:20→09:00)
--- NOTE | 2017-09-22 00:40 | NUR ---
PT SLEEPING BUT EASILY AROUSABLE. NO DISTRESS NOTED. NO COUGHING AT THIS TIME. CALL LIGHT WITHIN REACH.
--- NOTE | 2017-09-22 03:30 | NUR ---
PT SLEEPING, WAKES EASILY. NO S/S OF DISTRESS NOTED.
--- NOTE | 2017-09-22 04:10 | NUR ---
RECEIVED CRITICAL LAB VALUE BLOOD CULTURE- GRAM POSITIVE COCCI. RESULT REPORTED TO DR. PATEL. NO NEW ORDER AT THIS TIME.
[2017-09-22] MEDS: methylPREDNISolone SS 125 MG/2 ML VIAL IVP SCH ×2 (05:28→12:52)
[2017-09-22] MEDS: INSULIN LISPRO SLIDING SCALE 100 UNITS/ML VIAL SUBQ PRN ×2 (06:22→14:11)
[2017-09-22] MEDS: BLOOD GLUCOSE MONITORING 1 DEV DEV FS SCH ×3 (06:24→13:35)
--- NOTE | 2017-09-22 06:30 | NUR ---
BS CHECKED 386. 10 UNITS OF HUMALOG SQ GIVEN ORDERED.
--- NOTE | 2017-09-22 07:05 | NUR ---
ENDORSED PT TO DAY SHIFT NURSE. PT IN STABLE CONDITION.
--- NOTE | 2017-09-22 07:10 | NUR ---
RECEIVED REPORT FROM PRINTING TECHNICIAN NURSE, PT IS SLEEPING IN BED AT THIS TIME BUT EASILY AWAKEN, PT IS AAOX4, AMBULATORY, IV IS ON THE LEFT AC, PATENT, INTACT, FLUSHING WELL, NO S/S OF RESPIRATORY DISTRESS OR DISCOMFORT NOTED, DISCUSSED PLAN OF CARE WITH PT, PT VERBALIZED UNDERSTANDING, SAFETY/FALL PRECAUTIONS ARE IN PLACE, CALL LIGHT IS WITHIN REACH, WILL CONTINUE TO MONITOR.
[2017-09-22 07:11] LABS: BASOPHILS # (AUTO) 0.1 K/uL (0.00-0.22); BASOPHILS % (AUTO) 0.8 % (0.0-2.0); EOSINOPHILS % (AUTO) 0.1 % (0.0-4.0); HEMATOCRIT 30.2 % (36-48); HEMOGLOBIN 10.2 g/dL (12.0-16.0); LYMPHOCYTES # (AUTO) 1.8 K/uL (2.5-16.5); LYMPHOCYTES % (AUTO) 12.6 % (20.5-51.1); MEAN CORPUSCULAR HEMOGLOBIN 30 pg (27-31); MEAN CORPUSCULAR HGB CONC 34 g/dL (33-37); MEAN CORPUSCULAR VOLUME 88 fL (80-94); MONOCYTES # (AUTO) 0.3 K/uL (0.8-1.0); MONOCYTES % (AUTO) 2.4 % (1.7-9.3); NEUTROPHILS # (AUTO) 12.2 K/uL (1.8-7.7); NEUTROPHILS % (AUTO) 84.1 % (42.2-75.2); PLATELET COUNT (AUTO) 344 K/uL (140-450); RED BLOOD CELL COUNT(AUTO) 3.43 MIL/uL (4.20-5.40); RED CELL DISTRIBUTION WIDTH 13.2 % (11.6-13.7); WHITE BLOOD COUNT (AUTO) 14.4 K/uL (4.8-10.8)
[2017-09-22 07:25] LABS: MAGNESIUM 2.5 mg/dL (1.8-2.4); PHOSPHORUS 3.1 mg/dL (2.5-4.9)
[2017-09-22 07:28] LABS: ANION GAP 18.4 (8-16); CARBON DIOXIDE 20.7 mmol/L (21-32); CREATININE 1.4 mg/dL (0.6-1.3); POTASSIUM 4.1 mmol/L (3.5-5.1)
[2017-09-22] MEDS ORDERED: glipiZIDE 5 MG TAB PO SCH (07:30)
[2017-09-22] MEDS: ALBUTEROL SULFATE/IPRATROPIU 3 ML SOL IH SCH ×2 (07:53→13:57)
[2017-09-22 08:00] VITALS: BP 138/77
[2017-09-22] MEDS ORDERED: metFORMIN 500 MG TAB PO SCH (08:00)
--- NOTE | 2017-09-22 08:02 | NUR ---
PTS PRE PEAK FLOW 100 POST PEAK FLOW 150 UNABLE TO DO IS COUGHING
[2017-09-22] MEDS ORDERED: INSULIN LANTUS 100 UNITS/ML 10 ML VIAL SUBQ SCH ×2 (09:00→11:00)
[2017-09-22] MEDS ORDERED: CLINICAL MONITORING MC SCH (09:00)
[2017-09-22] MEDS: DOCUSATE SODIUM 100 MG GELCAP PO SCH (09:19)
[2017-09-22] MEDS: LACTOBACILLUS RHAMNOSUS GG 1 EACH CAP PO SCH (09:19)
[2017-09-22] MEDS: AZITHROMYCIN 250 MG TAB PO SCH (09:20)
--- NOTE | 2017-09-22 09:37 | NUR ---
PT BLOOD GLUCOSE LEVEL IS 441 @0918. SPOKE WITH DR. SUAZO, HE ORDERED AN ADDITIONAL 5UNITS OF LANTUS. INSTRUCTED ME TO CHECK HER BLOOD GLUCOSE LEVELS IN 2 HOURS AND SEE IF SHE STILL NEEDS TO BE COVERED WITH REGULAR INSULIN. ALSO IS GOING TO CHANGE SOLU-MEDROL TO BID. HE ALSO SAID TO PLEASE TELL THE PT AND PT FAMILY TO "STOP SNEAKING IN FOOD PLEASE."
--- NOTE | 2017-09-22 09:43 | NUR ---
PATIENT HAS BEEN SCREENED AND CATEGORIZED HIGH NUTRITION RISK. PATIENT WILL BE SEEN WITHIN 1-2 DAYS OF ADMISSION. 09/21/17- 09/22/[address]
--- NOTE | 2017-09-22 09:46 | NUR ---
ASKED PT IF SHE COULD DO BREATHING EXERCISES WITH THE INCENTIVE SPIROMETER. PT NOT TOLERATED WELL, BEGAN TO COUGH IN BETWEEN BREATHS.
--- NOTE | 2017-09-22 11:30 | NUR ---
GLUCOSE CHECK AT 1124 REVEALED A BLOOD SUGAR OF 478. THE ADDITIONAL 5 UNITS OF LANTUS WAS ADMINISTERED REQUESTED BY DR. SUAZO. PT RESTING IN BED AWAITING LUNCH. BED IN LOWEST POSITION. CALL LIGHT WITHIN REACH. WILL CONTINUE TO MONITOR.
--- NOTE | 2017-09-22 12:26 | NUR ---
CM NOTE FAXED CONCURRENT REVIEW TO [facility] [phone] PHONE MARIPOSA [phone] AND TO [facility] [phone] PHONE [phone]
--- NOTE | 2017-09-22 14:02 | NUR ---
BLOOD GLUCOSE CHECK REVEALED A BLOOD SUGAR LEVEL OF 498 @[address]. DR[address] SUAZO ORDERED TO USE HUMALOG VIA SLIDING SCALE TO DECREASE BLOOD GLUCOSE LEVELS BEFORE PT LEAVES [place].
--- NOTE | 2017-09-22 14:08 | NUR ---
PRE PEAK FLOW 140 POST FLOW 110 PT REFUSES IS
--- NOTE | 2017-09-22 14:15 | NUR ---
PER DR. SUAZO GAVE 16 UNITS OF HUMALOG. PT STABLE AT THIS TIME. PT STILL DECIDED TO LEAVE A.
[2017-09-22] MEDS ORDERED: AZIT250T3 PO (14:24)
[2017-09-22] MEDS ORDERED: METH4TAB3 PO (14:24)
[2017-09-22] MEDS ORDERED: LACT10CA PO (14:24)
[2017-09-22] MEDS ORDERED: GUAI-791 PO (14:24)
[2017-09-22] MEDS ORDERED: methylPREDNISolone SS 40 MG/ML VIAL IVP SCH (21:00)
[2017-09-23] MEDS ORDERED: methylPREDNISolone SS 40 MG/ML VIAL IVP SCH (05:00)
[2017-09-23] MEDS ORDERED: LEVOFLOXACIN 750 MG/D5W PREMIX 150 ML IV SCH (09:00)
[2017-09-23] MEDS ORDERED: INSULIN LANTUS 100 UNITS/ML 10 ML VIAL SUBQ SCH (09:00)
--- NOTE | 2017-09-23 15:33 | NUR ---
CM NOTE FAXED DISCHARGE SUMMARY TO [facility] [phone] AND INFORMED ALISHA LOWE THAT PATIENT WENT AMA ON 09/22/17.
== END 2017-09-22 14:15 | disposition left against medical advice (07) | DRG 139 ==
LOC: MED 23:47 → MTU 09-21 03:08
PROVIDERS: ADMIT Family Medicine; ATTEND Family Medicine
DX: J18.9 Pneumonia, unspecified organism (principal); N17.0 Acute kidney failure with tubular necrosis; E43 Unspecified severe protein-calorie malnutrition; E11.10 Type 2 diabetes mellitus with ketoacidosis without coma; J44.0 Chronic obstructive pulmonary disease with (acute) lower respiratory infection; J45.901 Unspecified asthma with (acute) exacerbation; E11.65 Type 2 diabetes mellitus with hyperglycemia; R06.03 Acute respiratory distress; I10 Essential (primary) hypertension; D64.9 Anemia, unspecified; J20.9 Acute bronchitis, unspecified; Z98.51 Tubal ligation status; Z83.3 Family history of diabetes mellitus; Z82.49 Family history of ischemic heart disease and other diseases of the circulatory system; Z68.34 Body mass index [BMI] 34.0-34.9, adult; Z53.21 Procedure and treatment not carried out due to patient leaving prior to being seen by health care provider
CPT/HCPCS: 36415; 71045; 80048; 80053; 82150; 82948; 83036; 83690; 83735; 83880; 84100; 84439; 84443; 84484; 85025; 85610; 85730; 87040; 87081; 94640; 96361; 96374; 99285; J1644; J1815; J1956; J2930; J3475; J7030; J7620

== ENCOUNTER 2018-01-22 13:53 | Inpatient (IN) | payer OTHER ==
[~2018-01-22] VITALS: Ht 154.9 cm; Wt 83.5 kg
[~2018-01-22 13:53] MED LIST changes: +AZIT250T3 PO; +GLIP5TAB4 PO; +GUAI-791 PO; +LACT10CA PO; +METH4TAB3 PO
--- NOTE | 2018-01-22 13:55 | NUR ---
PT AMBULATES TO BED 11
[2018-01-22 14:02] VITALS: BP 193/79
--- NOTE | 2018-01-22 14:05 | NUR ---
42YO F TO ER WITH C/O SOB. PT STATES COLD X5DAYS AND SOB X2DAYS. PT HAS BEEN TO THE CLINIC X2 IN THAT PAST WEEK. PT STATES N/V, CP WITH COUGHING, COUGHING UP YELLOW PHLEGM, RHINORRHIA, AND FEVER. PT DENIES AND ABD PAIN AT THIS TIME. DIMINISHED LS WITH COURSE CRACKLES. PT STATE THAT SHE RAN OUT OF MED X2MO AGO. ER MD MADE AWARE. WILL CONTINUE TO MONITOR. HX: HTN, DM
[2018-01-22] MEDS ORDERED: NACL 0.9% 2,000 ML IV SCH (14:11)
[2018-01-22] MEDS ORDERED: ALBUTEROL 0.083% 2.5 MG/3 ML NEBU INH ONE ×2 (14:15→15:20)
[2018-01-22] MEDS ORDERED: IPRATROPIUM 0.02% 0.5 MG/2.5 ML NEBU INH ONE (14:15)
[2018-01-22] MEDS ORDERED: methylPREDNISolone SS 125 MG/2 ML VIAL IVP ONE (14:15)
[2018-01-22] MEDS ORDERED: METOCLOPRAMIDE 10 MG/2 ML INJ VIAL IVP ONE (14:20)
--- NOTE | 2018-01-22 14:22 | NUR ---
ADMMITTING DX: SOB LOC AWAKE AND ALERT SKIN TONE PINK TACHYPNEIC PATIENT WITH EPISODE OF EMESIS EDUCATION PROVIDE TO PATIENT WITH ACKNOWLWEDGEMENT ON THE ADVERSE REACTIONS OF NAUSEA AND VOMITTING TO ALBUTEROL SULFATE PATIENT STATES "I WANT THE BREATHING TREATMENT" EDUCATION ALSO PROVIDED WITH ACKNOWLEDGEMENT ON HHN THERAPY AND RESPIRATORY DRUGS HHN THERAPY GIVEN AT THIS TIME TOLERATED HH THERAPY WEL WITHOUT INCIDENTS POST HHN THERAPY PLACED PATIENT ON SUPPLEMENTAL OXYGEN AT 3 LPM VIA JIMI TOSCANO/CHRISTIANE NOTIFIED
[2018-01-22 14:51] LABS: BASOPHILS # (AUTO) 0.1 K/uL (0.00-0.22); BASOPHILS % (AUTO) 0.5 % (0.0-2.0); EOSINOPHILS # (AUTO) 0.1 K/uL (0-0.4); EOSINOPHILS % (AUTO) 0.8 % (0.0-4.0); HEMATOCRIT 35.3 % (36-48); HEMOGLOBIN 11.7 g/dL (12.0-16.0); LYMPHOCYTES # (AUTO) 1.3 K/uL (2.5-16.5); LYMPHOCYTES % (AUTO) 11.9 % (20.5-51.1); MEAN CORPUSCULAR HEMOGLOBIN 28 pg (27-31); MEAN CORPUSCULAR HGB CONC 33 g/dL (33-37); MEAN CORPUSCULAR VOLUME 85.1 fL (80-94); MONOCYTES # (AUTO) 0.9 K/uL (0.8-1.0); MONOCYTES % (AUTO) 7.8 % (1.7-9.3); NEUTROPHILS # (AUTO) 8.9 K/uL (1.8-7.7); PLATELET COUNT (AUTO) 270 K/uL (140-450); RED BLOOD CELL COUNT(AUTO) 4.15 MIL/uL (4.20-5.40); RED CELL DISTRIBUTION WIDTH 13.4 % (11.6-13.7); WHITE BLOOD COUNT (AUTO) 11.3 K/uL (4.8-10.8)
[2018-01-22] MEDS ORDERED: ACETAMINOPHEN 325 MG TAB PO ONE (15:00)
--- NOTE | 2018-01-22 15:05 | NUR ---
XRAY AT BEDSIDE
[2018-01-22 15:17] LABS: ALBUMIN 2.7 g/dL (3.4-5.0); ANION GAP 14.9 (8-16); CARBON DIOXIDE 23.3 mmol/L (21-32); CREATININE 1.6 mg/dL (0.6-1.3); POTASSIUM 3.2 mmol/L (3.5-5.1); TOTAL BILIRUBIN 0.3 mg/dL (0.0-1.0)
[2018-01-22] MEDS ORDERED: LEVOFLOXACIN 500 MG/D5W PREMIX 100 ML IV ONE (15:20)
--- NOTE | 2018-01-22 15:24 | NUR ---
RT AT BEDSIDE
[2018-01-22 15:41] LABS: APPEARANCE,URINE CLEAR (CLEAR); BILIRUBIN,URINE NEGATIVE (NEGATIVE); BLOOD, URINE 3+ (NEGATIVE); COLOR,URINE YELLOW (YELLOW); LEUKOCYTE ESTERASE ,URINE NEGATIVE (NEGATIVE); NITRITE, URINE NEGATIVE (NEGATIVE); PH,URINE 5.5 (5.0-9.0); UGLUCOSE 3+ (NEGATIVE)
--- NOTE | 2018-01-22 15:50 | NUR ---
RT AT BEDSIDE
--- NOTE | 2018-01-22 15:51 | NUR ---
ORDERED FOLLOW UP HHN THERAPY GIVEN STRONG MOIST NPC TOLERATED THERAPY WELL WITHOUT INCIDENT POST HHN THERAPY PLACED BACK ON SUPPLEMENTALOXYGEN AT 3 LPM VIA NC
[2018-01-22 15:57] LABS: RBC,URINE 11-20 (MOD) /HPF (0-5); WBC,URINE 0-5 (RARE) /HPF (0-5)
[2018-01-22] MEDS ORDERED: IBUPROFEN 400 MG TAB PO ONE (16:15)
[2018-01-22] MEDS ORDERED: POTASSIUM CHLORIDE 10 MEQ TABER PO ONE (16:15)
[2018-01-22] MEDS ORDERED: KCL 20 MEQ/WATER INJ PREMIX 100 ML IV ONE (16:15)
[2018-01-22] MEDS ORDERED: HYDROcodone/APAP 7.5/325 MG 1 TAB PO PRN (16:45)
[2018-01-22] MEDS: NACL 0.9% 1,000 ML IV SCH ×2 (16:45→20:57)
[2018-01-22] MEDS ORDERED: ACETAMINOPHEN 325 MG TAB PO PRN (16:45)
[2018-01-22] MEDS ORDERED: DOCUSATE SODIUM 100 MG GELCAP PO PRN (16:45)
[2018-01-22] MEDS ORDERED: ONDANSETRON 4 MG/2 ML VIAL IM/IVP PRN (16:45)
[2018-01-22] MEDS ORDERED: ALBUTEROL SULFATE/IPRATROPIU 3 ML SOL IH PRN (17:05)
[2018-01-22 17:25] VITALS: BP 126/59
--- NOTE | 2018-01-22 17:25 | NUR ---
Patient will be admitted to care of DR FIELDS . Admited to TELE. Will go to room 121 A . Belongings list completed. Report to HELENA GRANDE .
[2018-01-22] MEDS ORDERED: DEXTROSE 50% 50 ML SYR IVP PRN (17:30)
--- NOTE | 2018-01-22 17:30 | NUR ---
PT ADMITTED TO [facility]. BEDSIDE REPORT GIVEN BY ER NURSE CARINA. PT IS AAOX4. AMBULATED TO BED WITH STEADY GAIT. PT ABLE TO STATE PAST MEDICAL HX. DENIES PAIN. PT WITH NON PRODUCTIVE COUGH. ON O2 NC 4L. O2 SAT 99%. NO SOB. NO SIGNS OF DISTRESS. WILL CONTINUE TO MONITOR.
[2018-01-22 17:49] LABS: CHOL/HDL RATIO 7.4 (1-4.5); MAGNESIUM 1.4 mg/dL (1.8-2.4); PHOSPHORUS 2.1 mg/dL (2.5-4.9); THYROID STIMULATING HORMONE 0.88 uIU/mL (0.34-3.74)
[2018-01-22] MEDS: metFORMIN 850 MG TAB PO SCH (18:34)
--- NOTE | 2018-01-22 19:30 | NUR ---
ENDORSED PT TO UTILITY SALES AND SERVICE MANAGER NURSE ESTEPHANIA AT BEDSIDE FOR CONTINUITY OF CARE.PT IN STABLE CONDITION.
--- NOTE | 2018-01-22 19:31 | NUR ---
RECEIVED PATIENT ON THE LYING IN BED . PATIENT WAS COOPERATIVE AND DISCUSS THE PLAN OF CARE AND VERBALIZED UNDERSTANDING. CALL LIGHT WITHIN REACH.ALL NEEDS ATTENDED. WILL CONTINUE TO MONITOR.
[2018-01-22] MEDS: ALBUTEROL SULFATE/IPRATROPIU 3 ML SOL IH SCH (19:35)
[2018-01-22 20:00] VITALS: BP 136/73
--- NOTE | 2018-01-22 20:15 | NUR ---
NOTIFIED DR. DOOLEY ABOUT BS OF OVER 600 AND ORDER TO GIVE 12 UNITS OF INSULIN AND IVF OF NS TO 130CC/HR.
[2018-01-22] MEDS: INSULIN LISPRO SLIDING SCALE 100 UNITS/ML VIAL SUBQ PRN (20:36)
[2018-01-22] MEDS: glipiZIDE 5 MG TAB PO SCH (20:56)
[2018-01-22] MEDS ORDERED: AZITHROMYCIN 250 MG TAB PO SCH (21:00)
[2018-01-22] MEDS: BLOOD GLUCOSE MONITORING 1 DEV DEV FS SCH (21:00)
--- NOTE | 2018-01-22 23:03 | NUR ---
SEEN PATINE ASLEEP ON BED BUT EASILY AROUSABLE. BED IN LOW POSITION. CALL LIGHT WITHIN REACH. WILL CONTINUE TO MONITOR.
[2018-01-23] VITALS: BP 148/67
--- NOTE | 2018-01-23 01:25 | NUR ---
SEEN PATIENT ASLEEP ON BED. CALL LIGHT WITHIN REACH. NO S/S OF DISTRESS NOTED. WILL CONTINUE TO MONITOR.
[2018-01-23] MEDS ORDERED: MAG SULF 2000 MG/WATER PREMIX 50 ML IV SCH (02:30)
--- NOTE | 2018-01-23 03:45 | NUR ---
SEEN PATIENT ASLEEP ON BED. CALL LIGHT WITHIN REACH. BED IN LOW POSITION. NO S/S OF DISTRESS NOTED. WILL CONTINUE TO MONITOR.
[2018-01-23 04:00] VITALS: BP 148/83
--- NOTE | 2018-01-23 05:45 | NUR ---
NOTIFIED DR. DOOLEY ABOUT ELEVATED BS 503. 12 UNITS GIVEN PER MD INSTRUCTION..
[2018-01-23] MEDS: INSULIN LISPRO SLIDING SCALE 100 UNITS/ML VIAL SUBQ PRN (05:58)
[2018-01-23] MEDS: BLOOD GLUCOSE MONITORING 1 DEV DEV FS SCH (06:02)
--- NOTE | 2018-01-23 06:49 | NUR ---
PATIENT HAS BEEN SCREENED AND CATEGORIZED HIGH NUTRITION RISK. PATIENT WILL BE SEEN WITHIN 1-2 DAYS OF ADMISSION. 01/23/18 - 01/24/18 SELIN MONTES MBA, RD
[2018-01-23] MEDS: ALBUTEROL SULFATE/IPRATROPIU 3 ML SOL IH SCH (07:10)
--- NOTE | 2018-01-23 07:25 | NUR ---
ENDORSEMENT GIVEN TO AM SHIFT FOR CONTINUITY IF CARE.CALL LIGHTS WITHIN REACH. PATIENT IN STABLE CONDITION.
--- NOTE | 2018-01-23 07:30 | NUR ---
PATIENT IS AWAKE, ALERT. RESPIRATION EVEN, UNLABOR ON ROOM AIR. SKIN DRY AND WARM. LUNGS SOUND CLEAR THROUGHOUT. BOWEL SOUND ACTIVE 4 QUADRANTS, LBM 01/22/18. IV PATENT AND INTACT. DENIED PAIN, BLUR VISION, SOB AT THIS TIME. PLAN OF CARE WAS DISCUSSED WITH PATIENT. BED AT LOW POSITION, SIDE RAILS UP. CALL LIGHT WITHIN REAC
[2018-01-23] MEDS: NACL 0.9% 1,000 ML IV SCH (07:31)
[2018-01-23 08:00] VITALS: BP 154/82
[2018-01-23 08:16] LABS: T4 (THYROXINE) 7.4 ug/dL (4.5-12.0)
[2018-01-23 08:23] LABS: BASOPHILS % (AUTO) 0.1 % (0.0-2.0); HEMATOCRIT 31.7 % (36-48); HEMOGLOBIN 10.6 g/dL (12.0-16.0); LYMPHOCYTES # (AUTO) 1.6 K/uL (2.5-16.5); LYMPHOCYTES % (AUTO) 9.6 % (20.5-51.1); MEAN CORPUSCULAR HEMOGLOBIN 29 pg (27-31); MEAN CORPUSCULAR HGB CONC 34 g/dL (33-37); MEAN CORPUSCULAR VOLUME 85.7 fL (80-94); MONOCYTES # (AUTO) 0.9 K/uL (0.8-1.0); MONOCYTES % (AUTO) 5.4 % (1.7-9.3); NEUTROPHILS # (AUTO) 13.9 K/uL (1.8-7.7); NEUTROPHILS % (AUTO) 84.9 % (42.2-75.2); PLATELET COUNT (AUTO) 276 K/uL (140-450); RED CELL DISTRIBUTION WIDTH 13.8 % (11.6-13.7); WHITE BLOOD COUNT (AUTO) 16.3 K/uL (4.8-10.8)
[2018-01-23 08:49] LABS: ANION GAP 14.1 (8-16); CARBON DIOXIDE 23.8 mmol/L (21-32); CREATININE 1.4 mg/dL (0.6-1.3); MAGNESIUM 2.8 mg/dL (1.8-2.4); PHOSPHORUS 2.2 mg/dL (2.5-4.9); POTASSIUM 3.9 mmol/L (3.5-5.1)
[2018-01-23] MEDS ORDERED: LACTOBACILLUS RHAMNOSUS GG 1 EACH CAP PO SCH (09:00)
[2018-01-23] MEDS ORDERED: INSULIN LANTUS 100 UNITS/ML 10 ML VIAL SUBQ SCH (09:00)
[2018-01-23] MEDS: metFORMIN 850 MG TAB PO SCH (09:02)
[2018-01-23] MEDS: glipiZIDE 5 MG TAB PO SCH (09:02)
--- NOTE | 2018-01-23 10:26 | NUR ---
PATIENT VERBALIZED THE REQUEST TO LEAVE AMA. WAS AWARE
--- NOTE | 2018-01-23 10:58 | NUR ---
01/23/18 RD INITIAL ASSESSMENT COMPLETED PLEASE REFER TO NUTRITION ASSESSMENT UNDER CARE ACTIVITY FOR ESTIMATED NUTRITIONAL NEEDS. RD RECOMMENDATIONS: 1- RECOMMEND CONTINUE 60G CCHO DIET 2- PT NEEDS DIABETIC DIET EDUCATION; RD WILL EDUCATE ON F/U 3- F/U 2-3 DAYS; HIGH RISK SELIN MONTES MBA, RD
--- NOTE | 2018-01-23 11:10 | NUR ---
PATIENT SIGNED AMA FORM AT BEDSIDE, VERBALIZED UNDERSTANDING THE RISK OF LEAVING AMA. PRESCRIPTIONS WERE GIVEN AND EXPLAINED TO THE PATIENT. IVS WERE REMOVED, CATHETER INTACT, BLEEDING WAS CONTROLLED. ID BAND AND COMPUTATIONAL CHEMIST WERE REMOVED.
[2018-01-23] MEDS ORDERED: INSU100S22 SUBQ (11:16)
[2018-01-23] MEDS ORDERED: AZIT250T3 PO (11:16)
[2018-01-23] MEDS ORDERED: BLOO1EAC40 MC (11:16)
[2018-01-23] MEDS ORDERED: PEN-124 MC (11:16)
[2018-01-23] MEDS ORDERED: LACT1.4C PO (11:16)
[2018-01-23] MEDS ORDERED: METF850T PO (11:16)
[2018-01-23] MEDS ORDERED: LANC-947 MC (11:16)
[2018-01-23] MEDS ORDERED: GABA300C PO (11:16)
[2018-01-23] MEDS ORDERED: GLIP10TA3 PO (11:16)
[2018-01-23] MEDS ORDERED: AZITHROMYCIN 250 MG TAB PO SCH (21:00)
[2018-01-24] MEDS ORDERED: INSULIN LANTUS 100 UNITS/ML 10 ML VIAL SUBQ SCH (09:00)
--- NOTE | 2018-01-26 07:58 | NUR ---
[facility] FAXED ER REPORT, H&P, PROGRESS NOTES AND DISCHARGE SUMMARY TO [facility] [phone] PHONE [phone]
== END 2018-01-23 11:41 | disposition left against medical advice (07) | DRG 720 ==
LOC: MED 13:53 → MTU 16:49
PROVIDERS: ADMIT General Practice; ATTEND General Practice
DX: A41.9 Sepsis, unspecified organism (principal); J96.01 Acute respiratory failure with hypoxia; N17.0 Acute kidney failure with tubular necrosis; E43 Unspecified severe protein-calorie malnutrition; J18.9 Pneumonia, unspecified organism; J45.901 Unspecified asthma with (acute) exacerbation; E87.1 Hypo-osmolality and hyponatremia; E11.65 Type 2 diabetes mellitus with hyperglycemia; E86.0 Dehydration; R65.20 Severe sepsis without septic shock; I10 Essential (primary) hypertension; D64.9 Anemia, unspecified; E87.6 Hypokalemia; E83.39 Other disorders of phosphorus metabolism; E83.42 Hypomagnesemia; E78.5 Hyperlipidemia, unspecified; Z53.21 Procedure and treatment not carried out due to patient leaving prior to being seen by health care provider; Z98.51 Tubal ligation status; Z79.4 Long term (current) use of insulin; Z79.899 Other long term (current) drug therapy; Z82.49 Family history of ischemic heart disease and other diseases of the circulatory system; Z83.3 Family history of diabetes mellitus; Z68.34 Body mass index [BMI] 34.0-34.9, adult
CPT/HCPCS: 36415; 36600; 71045; 80048; 80053; 81001; 82150; 82803; 82948; 83036; 83605; 83690; 83735; 83880; 84100; 84436; 84443; 84479; 84484; 85025; 85610; 85730; 87040; 87081; 87086; 93005; 93970; 94640; 96361; 96365; 96367; 96375; 99291; J0696; J1815; J1956; J2765; J2930; J3475; J3480; J7030; J7060; J7613; J7620; J7644; Q0092

== ENCOUNTER 2022-06-16 09:15 | Emergency (ER) | payer OTHER ==
[~2022-06-16] VITALS: Ht 154.9 cm; Wt 84.8 kg
[~2022-06-16 09:15] MED LIST changes: +BLOO1EAC40 MC; +GABA300C PO; +GLIP10TA3 PO; +GLIP5TAB14 PO; -GLIP5TAB4 PO; +INSU100S22 SUBQ; +LACT1.4C PO; +LANC-947 MC; +METF-713 PO; +PEN-124 MC
[2022-06-16 09:45] VITALS: BP 168/67
[2022-06-16] MEDS ORDERED: KETOROLAC 60 MG/2 ML VIAL IM ONE (10:00)
--- NOTE | 2022-06-16 10:02 | NUR ---
C/O RIGHT LEG PAIN X2DAYS, DENIES TRAUMA/INJURY, TOOK TYLENOL FOR PAIN WITH SOME RELIEF, NOTED REDNESS AND RASH ON THE AFFECTED EXTREMITY. NKA PMH: DIALYSIS (MWF LAST TODAY) LEFT ARM, HTN, DM, ASTHMA
[2022-06-16] MEDS ORDERED: NAPR-54 PO (11:25)
[2022-06-16] MEDS ORDERED: CEPH-588 PO (11:25)
--- NOTE | 2022-06-16 11:34 | NUR ---
Patient discharged with v/s stable. Written and verbal after care instructions ABOUT CELLULITIS given and explained. Patient alert, oriented and verbalized understanding of instructions. Ambulatory with steady gait. All questions addressed prior to discharge. ID band removed. Patient advised to follow up with PMD. Rx of KEFLEX, NAPROXEN given. Patient educated on indication of medication including possible reaction and side effects. Opportunity to ask questions provided and answered.
== END 2022-06-16 11:34 | disposition home or self-care (01) ==
LOC: MED 09:15
DX: L03.115 Cellulitis of right lower limb (principal); J45.909 Unspecified asthma, uncomplicated; E11.9 Type 2 diabetes mellitus without complications; I10 Essential (primary) hypertension; Z79.899 Other long term (current) drug therapy; Z79.4 Long term (current) use of insulin; Z89.512 Acquired absence of left leg below knee
CPT/HCPCS: 96372; 99283; J1885

== ENCOUNTER 2023-02-03 12:19 | Inpatient (IN) | payer OTHER ==
[~2023-02-03] VITALS: Ht 167.6 cm; Wt 90.3 kg
[~2023-02-03 12:19] MED LIST changes: +CEPH-588 PO; -LEVA0.6318; +LEVA0.6335; +NAPR-54 PO
[2023-02-03 12:29] VITALS: BP 150/116
--- NOTE | 2023-02-03 12:37 | NUR ---
PATIENT W/C ASSIST TO BED 4
--- NOTE | 2023-02-03 12:38 | NUR ---
MD MCDERMOTT AND RT AT BEDSIDE
[2023-02-03] MEDS ORDERED: IPRATROPIUM 0.02% 0.5 MG/2.5 ML NEBU INH ONE ×2 (12:40→12:45)
[2023-02-03] MEDS ORDERED: ALBUTEROL 0.083% 2.5 MG/3 ML NEBU INH ONE ×2 (12:40→12:45)
--- NOTE | 2023-02-03 12:44 | NUR ---
bib pt own wc to ed bed 4, c/o sob w/asthma dialysis history. she states gets dialysis [facility] and did not get dialysis yesterday. she does have a left upper extremity av fistula in place. md eh velez pt and did a 05/20 albuterol/atrovent hx. pt does feel warm to touch but triage shows no elevated temp. pending full md assessment. interventions breathing tx, pulse ox and ekg monitoring, also mag to stop lung spasms.
[2023-02-03] MEDS ORDERED: methylPREDNISolone SS 125 MG/2 ML VIAL IVP ONE (12:45)
[2023-02-03] MEDS ORDERED: MAG SULF 2000 MG/WATER PREMIX 50 ML IV ONE (12:45)
--- NOTE | 2023-02-03 12:59 | NUR ---
RECEIVED A CALLED FROM ER PT IN NEED OF BREATHING TX STAT. PT RR32 SPO2 96% ON NRM. PT IS SOB AND STATED THIS HAS BEEN GOING ON SINCE 4AM. RT DID A RESPIRATORY ASSESSMENT . PT IS TOLERATING BREATHING TX WELL. PRODUCTIVE COUGH WITH YELLOW THICK SPUTUM. WILL CONTINUE TO MONITOR.
[2023-02-03 13:20] LABS: BASOPHILS # (AUTO) 0.1 K/uL (0.00-0.22); BASOPHILS % (AUTO) 0.8 % (0.0-2.0); EOSINOPHILS # (AUTO) 0.3 K/uL (0-0.4); EOSINOPHILS % (AUTO) 2.4 % (0.0-4.0); HEMATOCRIT 35.2 % (36-48); HEMOGLOBIN 11.1 g/dL (12.0-16.0); LYMPHOCYTES # (AUTO) 1.1 K/uL (2.5-16.5); LYMPHOCYTES % (AUTO) 9.2 % (20.5-51.1); MEAN CORPUSCULAR HEMOGLOBIN 29 pg (27-31); MEAN CORPUSCULAR HGB CONC 32 g/dL (33-37); MEAN CORPUSCULAR VOLUME 92.8 fL (80-94); MONOCYTES # (AUTO) 0.6 K/uL (0.8-1.0); MONOCYTES % (AUTO) 5.1 % (1.7-9.3); NEUTROPHILS # (AUTO) 10.1 K/uL (1.8-7.7); NEUTROPHILS % (AUTO) 82.5 % (42.2-75.2); PLATELET COUNT (AUTO) 258 K/uL (140-450); RED BLOOD CELL COUNT(AUTO) 3.79 MIL/uL (4.20-5.40); RED CELL DISTRIBUTION WIDTH 16.8 % (11.6-13.7); WHITE BLOOD COUNT (AUTO) 12.2 K/uL (4.8-10.8)
[2023-02-03 13:29] LABS: PROTHROMBIN TIME 10.7 secs (10.8-13.4)
[2023-02-03 13:37] LABS: ALBUMIN 3.3 g/dL (3.4-5.0); ANION GAP 17.6 (8-16); ASPARTATE AMINOTRANSFERASE 14 U/L (15-37); CARBON DIOXIDE 25.9 mmol/L (21-32); CHLORIDE 93 mmol/L (98-107); GFR ARICAN-AMERICAN 8 mL/min (>90); POTASSIUM 5.5 mmol/L (3.5-5.1); SODIUM SERUM 131 mmol/L (136-145); TOTAL BILIRUBIN 0.6 mg/dL (0.0-1.0); UREA NITROGEN, BLOOD 55 mg/dL (7-18)
[2023-02-03 13:39] LABS: GLUCOSE 429 mg/dL (74-106)
[2023-02-03 13:40] LABS: CREATININE 6.9 mg/dL (0.6-1.3)
[2023-02-03] MEDS ORDERED: SODIUM ZIRCONIUM CYCLOSILICATE 10 GM POWD.PACK PO ONE (13:55)
[2023-02-03] MEDS ORDERED: SODIUM BICARBONATE 8.4% PFS 50 MEQ/50 ML SYR IVP ONE (13:55)
[2023-02-03] MEDS ORDERED: INSULIN REGULAR, HUMAN 100 UNIT/ML VIAL SUBQ ONE (13:55)
[2023-02-03] MEDS ORDERED: ALBUTEROL SULFATE/IPRATROPIU 3 ML SOL IH PRN (15:05)
[2023-02-03] MEDS ORDERED: DEXTROSE 50% 50 ML SYR IVP PRN (15:10)
[2023-02-03] MEDS ORDERED: INSULIN LANTUS 100 UNITS/ML 10 ML VIAL SUBQ SCH (15:16)
[2023-02-03] MEDS ORDERED: ONDANSETRON 4 MG/2 ML VIAL IVP PRN (15:20)
[2023-02-03] MEDS ORDERED: HYDROcodone/APAP 5/325 MG 1 TAB TAB PO PRN ×2 (15:20)
[2023-02-03] MEDS: BLOOD GLUCOSE MONITORING 1 DEV DEV FS SCH ×2 (16:52→21:03)
[2023-02-03] MEDS: INSULIN LISPRO 100 UNITS/ML VIAL SUBQ SCH ×2 (16:54→22:46)
--- NOTE | 2023-02-03 17:02 | NUR ---
MD TRIVEDI NOTIFIED AND MADE AWARE OF BS 468. VERBAL ORDER RECEIVED "GIVE PT 10UNITS OF HUMALOG LISPRO ONCE". ORDER REPEATED BACK AND CARRIED OUT
[2023-02-03] MEDS: INSULIN LISPRO SLIDING SCALE 100 UNITS/ML VIAL SUBQ PRN ×2 (17:20→21:24)
--- NOTE | 2023-02-03 17:48 | NUR ---
pt provided w/ dinner. pt awake, repositioned and eating in bed
--- NOTE | 2023-02-03 19:19 | NUR ---
REPORT GIVEN TO [facility]. TRANSFER OF CARE AT THIS TIME
[2023-02-03] MEDS: ALBUTEROL SULFATE/IPRATROPIU 3 ML SOL IH SCH ×2 (19:27→23:00)
[2023-02-03] MEDS: BUDESONIDE 0.25 MG/2 ML NEBU INH SCH (19:28)
--- NOTE | 2023-02-03 19:32 | NUR ---
PATIENT RESTING IN BED, A/OX4, CHEST RISE AND FALL SYMMETRICAL, NO C/O PAIN OR S/S OF DISTRESS, ON MONITOR.
--- NOTE | 2023-02-03 19:45 | NUR ---
PT. IS FOR ADMISSION TO TELEMETRY. STILL WAITING FOR AVAILABLE BED.
--- NOTE | 2023-02-03 20:25 | NUR ---
PT. BP IS 183/74. referred to Dr. Khalil. received telephone order. amlodipine 10mg p.o now. hydralazine 10mg prn for bp above 160/90.
[2023-02-03] MEDS ORDERED: amLODIPine 5 MG TAB PO STA (20:37)
[2023-02-03] MEDS ORDERED: hydrALAZINE 20 MG/ML VIAL IVP PRN (20:40)
--- NOTE | 2023-02-03 21:00 | NUR ---
per acu check result blood sugar: Hi, above 600. dr. Khalil called and verbally informed of blood glucose result . dr. Khalil verbalized understanding and ordered 10 unit of humolag SQ. read back complete
--- NOTE | 2023-02-03 21:25 | NUR ---
Patient will be admitted to care of Dr. Blake, Dr. Khalil covering. Admited to Telemetry. Will go to room 113. Belongings list completed. Report to Tele Nurse Yves RN. Tele Nurse Yves RN verbally informed of administration of blood pressure medication Amlodipine 10mg PO and Insulin Humalog 10 Units, per verbal orders. Tele Nurse Yves RN. verbalized understanding of medication administration and Tele Nurse Yves RN stated she "will recheck blood pressure and blood sugar within 30 minutes and call back with recheck results." Tele Nurse Yves RN also verbalized understanding of report, no further questions.
--- NOTE | 2023-02-03 22:36 | NUR ---
NOTIFIED MD ABOUT RECHECK OF BLOOD SUGAR OF 582. PER MD STATES TO GIVE 20 UNITS OF LANTUS X1 AND 15 UNITS HUMALOG X1
--- NOTE | 2023-02-03 22:40 | NUR ---
POULTRY GRADER AT BEDSIDE STARTING DIALYSIS
[2023-02-03] MEDS: INSULIN LANTUS 100 UNITS/ML 10 ML VIAL SUBQ SCH (22:47)
--- NOTE | 2023-02-03 23:21 | NUR ---
PT RESTING, IS ON DIALYSIS, AND REFUSED SCHEDULED HHN TX. EDUCATED PT OF BENEFITS AND CONS OF MED TO WHICH SHE DECLINED. PT IS ON 2L NC, SPO2 98%, NO RESPIRATORY DISTRESS NOTED.
--- NOTE | 2023-02-04 00:15 | NUR ---
RECHECKED BLOOD GLUCOSE AFTER 1 HOUR AFTER 15 UNITS HUMALOG AND 20 UNITS LANTUS, ACCUCHECK SHOWING 315
[2023-02-04 00:27] VITALS: BP 142/68
[2023-02-04] MEDS: INSULIN LISPRO 100 UNITS/ML VIAL SUBQ SCH ×2 (01:38→06:21)
[2023-02-04] MEDS: INSULIN LANTUS 100 UNITS/ML 10 ML VIAL SUBQ SCH (01:39)
--- NOTE | 2023-02-04 01:39 | NUR ---
PT. FINISHED WITH DIALYSIS PER WELL DIGGER 4L OUT
[2023-02-04] MEDS: ALBUTEROL SULFATE/IPRATROPIU 3 ML SOL IH SCH ×3 (03:45→11:12)
--- NOTE | 2023-02-04 03:56 | NUR ---
PT CONTINUES TO REMOVE HER NASAL CANNULA AND STATES BECAUSE SHE "HAS BEEN DOING FINE WITHOUT IT". PT SPO2 WAS 90% ON RA. EDUCATED PT ON SPO2, THE BENEFITS OF WEARING HER NASAL CANNULA, AND MAINTAINING A VALUE OF >92%. PT DECIDED TO PLACE HER NASAL CANNULA BACK ON. RECEIVED SCHEDULED HHN TX, WAS PLACED ON 2L, SPO2 IS NOW 96%.
[2023-02-04 04:13] VITALS: BP 136/62
[2023-02-04] MEDS ORDERED: predniSONE 20 MG TAB PO SCH (06:00)
[2023-02-04] MEDS: BLOOD GLUCOSE MONITORING 1 DEV DEV FS SCH ×2 (06:06→11:49)
[2023-02-04] MEDS: INSULIN LISPRO SLIDING SCALE 100 UNITS/ML VIAL SUBQ PRN ×2 (06:22→11:53)
[2023-02-04 06:47] LABS: CARBON DIOXIDE 30.1 mmol/L (21-32); POTASSIUM 4.1 mmol/L (3.5-5.1)
[2023-02-04 06:50] LABS: CREATININE 4.3 mg/dL (0.6-1.3)
[2023-02-04] MEDS: BUDESONIDE 0.25 MG/2 ML NEBU INH SCH (06:50)
[2023-02-04 06:59] LABS: BASOPHILS % (AUTO) 0.4 % (0.0-2.0); HEMATOCRIT 33.1 % (36-48); HEMOGLOBIN 10.6 g/dL (12.0-16.0); LYMPHOCYTES # (AUTO) 0.7 K/uL (2.5-16.5); LYMPHOCYTES % (AUTO) 5.7 % (20.5-51.1); MEAN CORPUSCULAR HEMOGLOBIN 30 pg (27-31); MEAN CORPUSCULAR HGB CONC 32 g/dL (33-37); MEAN CORPUSCULAR VOLUME 92.2 fL (80-94); MONOCYTES # (AUTO) 0.4 K/uL (0.8-1.0); MONOCYTES % (AUTO) 3.5 % (1.7-9.3); NEUTROPHILS # (AUTO) 10.4 K/uL (1.8-7.7); NEUTROPHILS % (AUTO) 90.4 % (42.2-75.2); PLATELET COUNT (AUTO) 258 K/uL (140-450); RED BLOOD CELL COUNT(AUTO) 3.59 MIL/uL (4.20-5.40); RED CELL DISTRIBUTION WIDTH 16.7 % (11.6-13.7); WHITE BLOOD COUNT (AUTO) 11.5 K/uL (4.8-10.8)
--- NOTE | 2023-02-04 07:15 | NUR ---
RECEIVED REPORT FROM ELECTRO MECHANICAL DESIGNER NURSE FOR CONTINUITY OF CARE. PT STABLE AT THIS TIME.
[2023-02-04 08:00] VITALS: BP 151/70
--- NOTE | 2023-02-04 08:49 | NUR ---
PATIENT HAS BEEN SCREENED AND CATEGORIZED MODERATE NUTRITION RISK. PATIENT WILL BE SEEN WITHIN 3-5 DAYS OF ADMISSION. 02/06/23-02/08/[address]
[2023-02-04] MEDS ORDERED: ENOXAPARIN 30 MG/0.3 ML SYR SUBQ SCH (09:00)
[2023-02-04] MEDS ORDERED: INSULIN LANTUS 100 UNITS/ML 10 ML VIAL SUBQ SCH ×2 (09:00)
[2023-02-04] MEDS ORDERED: ENOXAPARIN 40 MG/0.4 ML SYR SUBQ SCH (09:00)
[2023-02-04] MEDS ORDERED: GABAPENTIN 300 MG CAP PO SCH (09:00)
[2023-02-04] MEDS ORDERED: ALBU0.0912 IH (10:21)
[2023-02-04] MEDS ORDERED: PRED20TA5 PO (10:21)
[2023-02-04] MEDS ORDERED: BUDE1AER INH (10:21)
[2023-02-04] MEDS ORDERED: INSULIN LISPRO 100 UNITS/ML VIAL SUBQ SCH (11:30)
--- NOTE | 2023-02-04 12:30 | NUR ---
MESSAGED DR SWIFT TO SEE IF WE ARE DOING DIALYSIS TODAY AND HE SAID IT WAS OKAY TO DISCHARGE THE PATIENT IF SHE HAD DIALYSIS LAST NIGHT.
[2023-02-04 13:30] VITALS: BP 151/70
== END 2023-02-04 14:05 | disposition home or self-care (01) | DRG 189 ==
LOC: MED 12:19 → MTU 15:21
PROVIDERS: ADMIT Internal Medicine; ATTEND Internal Medicine
PROC: 5A1D70Z Performance of Urinary Filtration, Intermittent, Less than 6 Hours Per Day (ICD-10-PCS; principal; 2023-02-03)
DX: J96.01 Acute respiratory failure with hypoxia (principal); N18.6 End stage renal disease; J45.901 Unspecified asthma with (acute) exacerbation; E11.65 Type 2 diabetes mellitus with hyperglycemia; E11.22 Type 2 diabetes mellitus with diabetic chronic kidney disease; Z20.822 Contact with and (suspected) exposure to COVID-19; D63.8 Anemia in other chronic diseases classified elsewhere; E78.5 Hyperlipidemia, unspecified; Z90.49 Acquired absence of other specified parts of digestive tract; Z99.2 Dependence on renal dialysis; Z83.3 Family history of diabetes mellitus; Z82.49 Family history of ischemic heart disease and other diseases of the circulatory system; Z79.899 Other long term (current) drug therapy
CPT/HCPCS: 36415; 71045; 80048; 80053; 82948; 83605; 83735; 84484; 85025; 85610; 85730; 87040; 87081; 93005; 94640; 96365; 96372; 96375; 99285; J1650; J1815; J2930; J3475; J7512; J7613; J7626; J7644